=== PATIENT | male | born 1995 | race African-American/Black ===

== ENCOUNTER 2017-11-24 18:04 | Emergency (ER) | payer SELFPAY ==
[~2017-11-24] VITALS: Ht 182.9 cm; Wt 132.0 kg
[~2017-11-24 18:04] MED LIST: DICL50 PO
[2017-11-24 18:06] VITALS: BP 143/75; PULSE 60; RESP 16; TEMP 98.2; O2SAT 98
--- NOTE | 2017-11-24 19:35 | PD ---
HPI Chief Complaint: Cold / Flu Symptoms Time Seen by Provider: 18:57 Travel History International Travel<30 days: No Contact w/Intl Traveler<30days: No Traveled to known affect area: No History of Present Illness HPI This is a 22-year-old male here with flulike illness 6 days. He is reporting mild body aches, subjective fever, nasal congestion, cough. No aggravating or alleviating factors. No sick contacts or foreign travel. Symptom severity is mild. PFSH Past Medical History Medical History: Denies Significant Hx Diminished Hearing: No Immunizations Current: Yes Tetanus Vaccination: > 5 Years Influenza Vaccination: No Social History Alcohol Use: No Tobacco Use: No Substance Use: No Allergies-Medications (Allergen,Severity, Reaction): Coded Allergies: No Known Allergies (Unverified Adverse Reaction, Unknown, 11/24/17) Reported Meds & Prescriptions Reported Meds & Active Scripts Active No Active Prescriptions or Reported Medications Review of Systems Except as stated in HPI: all other systems reviewed are Neg Physical Exam Narrative GENERAL: Alert and well-appearing 22-year-old male SKIN: Warm and dry. No rash HEAD: Normocephalic. EYES: No injection or drainage. Ear/nose/throat: No TM erythema. clear nasal discharge. Mild pharyngeal erythema without tonsillar hypertrophy or exudate. NECK: Supple, trachea midline. No JVD or lymphadenopathy. CARDIOVASCULAR: Regular rate and rhythm without murmurs, gallops, or rubs. RESPIRATORY: Breath sounds equal bilaterally. No accessory muscle use. GASTROINTESTINAL: Abdomen soft, non-tender, nondistended. MUSCULOSKELETAL: No cyanosis, or edema. BACK: Nontender without obvious deformity. No CVA tenderness. Data Data Last Documented VS Vital Signs Date Time Temp Pulse Resp B/P (MAP) Pulse Ox O2 Delivery O2 Flow Rate FiO2 11/24/17 18:06 98.2 60 16 143/75 (97) 98 Orders Orders Ed Discharge Order (11/24/17 19:35) MDM Medical Decision Making Medical Screen Exam Complete: Yes Emergency Medical Condition: Yes Differential Diagnosis Influenza, bronchitis, pneumonia, strep pharyngitis Narrative Course This is a 22-year-old male here with flulike illness 6 days. His vital signs are stable. He is nontoxic appearing. Symptomatically treatment discussed. Diagnosis Primary Impression: Influenza-like illness Referrals: Primary Care Physician Departure Forms: Tests/Procedures, Work Release Enter return to work date: Nov 28, 2017 Additional Instructions: Ibuprofen 800 mg every 6 hours as needed for pain. Tylenol as needed for pain and fever. Plenty of fluids. Follow-up with her primary doctor. Scripts No Active Prescriptions or Reported Meds Disposition: 01 DISCHARGE HOME Condition: Stable Amada Dixon Nov 24, 2017 19:35
== END 2017-11-24 19:51 | disposition home or self-care (01) ==
LOC: PHEFT 18:04
DX: R52 Pain, unspecified (principal); R50.9 Fever, unspecified; R09.81 Nasal congestion; R05 Cough
CPT/HCPCS: 99282